=== PATIENT | male | born 2005 | race Two or more races ===

== ENCOUNTER 2025-03-28 00:53 | Emergency (ER) | payer SELFPAY ==
[2025-03-28] MEDS ORDERED: Pantoprazole 40 MG VIAL ONE (01:35)
[2025-03-28] MEDS ORDERED: Famotidine/PF 20 mg/2ml Vial ONE (01:35)
[2025-03-28 01:45] LABS: #Basophils 0.05 10x3/uL (0.0-0.2); #Eosinophils 0.10 10x3/uL (0.0-0.7); #Monocytes 0.44 10x3/uL (0.11-0.59); #Neutrophils 6.70 10x3/uL (1.40-6.50); %Basophils 0.5 % (0.0-1.0); %Eosinophils 0.9 % (0.0-10.0); %Lymphocytes 33.5 % (21.0-51.0); %Monocytes 4.0 % (0.0-10.0); %Neutrophils 60.7 % (42.0-75.0); Hematocrit 43.9 % (42.0-52.0); Hemoglobin 15.2 g/dL (14.0-18.0); Mean Corpuscular Hemoglobin 31.3 pg (27.0-31.0); Mean Corpuscular Volume 90.5 fL (78.0-98.0); Platelet Count 291 10x3/uL (130-400); Red Blood Cell (RBC) Count 4.85 mill/uL (4.70-6.10); White Blood Cell (WBC) Count 11.03 10x3/uL (4.8-10.8)
[2025-03-28 02:00] LABS: INR-International Normal Ratio 1.0; PTT 25.5 sec (22.9-36.1); Prothrombin Time 13.5 sec (12.0-14.7)
[2025-03-28 02:03] LABS: D-Dimer Test Less than 0.27 mcg/mL (0.27-0.43)
[2025-03-28 02:08] LABS: ALT (SGPT) 28 U/L (Less than 45); AST (SGOT) 46 U/L (11-34); Albumin 4.7 g/dL (3.1-4.5); Alkaline Phosphatase 86 U/L (40-110); Anion Gap 18 mmol/L (10-20); BUN (Urea Nitrogen) 11 mg/dL (8.9-20.6); Bilirubin, Total 0.4 mg/dL (0.3-1.2); Calc. Creatinine Clearance 0 mL/min (70-130); Calcium 9.0 mg/dL (7.8-10.44); Carbon Dioxide 21 mmol/L (22-29); Chloride 102 mmol/L (98-107); Globulin 3.1 g/dL (2.4-3.5); Glucose 97 mg/dL (70-105); Lipase 18 U/L (8-78); Potassium 3.5 mmol/L (3.5-5.1); Sodium 137 mmol/L (136-145)
== END 2025-03-28 06:40 | disposition home or self-care (01) ==
LOC: ERS 00:53
DX: R10.11 Right upper quadrant pain (principal); R07.89 Other chest pain; F10.20 Alcohol dependence, uncomplicated
CPT/HCPCS: 36415; 71045; 76705; 80053; 83605; 83690; 83880; 84484; 85025; 85379; 85610; 85730; 93005; 96374; 96375; J2470